=== PATIENT | male | born 1965 | race Caucasian/White ===

== ENCOUNTER 2016-06-07 01:08 | Emergency (ER) | payer OTHER ==
--- NOTE | 2016-06-07 01:46 | PN ---
Progress Note - Progress Note Note: Patient has a 1.5cm linear laceration on his bottom lip that was irrigated with normal saline. The wound was numbed with 1% lidocaine with epinepherine and sutured with 6.0 chromic gut. 5 sutures were placed and the patient tolerated the procedure well. He additionally has an abrasion to the chin and adhesive glue was applied to control bleeding.
--- NOTE | 2016-06-07 02:23 | ED ---
Shadi Dior Janilya, scribed for Vik Myers MD on 06/07/16 at 0110 . Substance Abuse/Use - HPI Summary HPI Summary: A 50 y/o male was BIBA to [facility] due to intoxication. According to the pt, he usually drinks a liter of rum on the daily basis. Similarly, today he had the same amount of alcohol at home. Later, however, pt decided to obtain some more EtOH. He went out to the liquor store. Pt states that he felt really drunk and fell down when he was walking on the street. Pt has a bleeding laceration on his chin. - History Of Current Complaint Stated Complaint: FALL Hx Obtained From: Patient Overdose Characteristics: Oral Timing Of Abuse: Daily Severity Initially: Moderate Severity Currently: Moderate Aggravating Factor(s): Nothing Alleviating Factor(s): Nothing Associated Signs And Symptoms: Negative - Allergies/Home Medications Allergies/Adverse Reactions: Allergies Allergy/AdvReac Type Severity Reaction Status Date / Time Diphenhydramine Allergy Muscle Ache Verified 03/19/16 12:58 PMH/Surg Hx/FS Hx/Imm Hx Previously Healthy: Yes Endocrine/Hematology History: Denies: Hx Diabetes, Hx Thyroid Disease Cardiovascular History: Denies: Hx Hypertension Respiratory History: Denies: Hx Asthma, Hx Chronic Obstructive Pulmonary Disease (COPD) GI History: Denies: Hx Ulcer - Surgical History Surgery Procedure, Year, and Place: minor hand surgery Infectious Disease History: Denies: Hx Clostridium Difficile, Hx Hepatitis, Hx Human Immunodeficiency Virus (HIV), Hx of Known/Suspected MRSA, Hx Shingles, Hx Tuberculosis - Family History Known Family History: Negative: Cardiac Disease, Hypertension, Diabetes - Social History Alcohol Use: None Alcohol Amount: 10-11 beers daily Substance Use Type: Reports: None Smoking Status (MU): Current Every Day Smoker Type: Cigarettes Amount Used/How Often: 1/3 ppd Review of Systems Negative: Fever Skin: Other - laceration on chin Psychological: Other - drunk All Other Systems Reviewed And Are Negative: Yes Physical Exam Triage Information Reviewed: Yes Vital Signs On Initial Exam: Initial Vitals Temp Pulse Resp BP Pulse Ox 98.0 F 90 16 163/100 97 06/07/16 01:09 06/07/16 01:09 06/07/16 01:09 06/07/16 01:09 01/30/17 01:09 Vital Signs Reviewed: Yes Appearance: Positive: No Pain Distress - aob, Thin Skin: Positive: Warm - facial lac Head/Face: Positive: Other - facial abrasions and lac Eyes: Positive: LOCO ENT: Positive: Hearing grossly normal Neck: Positive: Supple Respiratory/Lung Sounds: Positive: Clear to Auscultation, Breath Sounds Present Cardiovascular: Positive: Normal Abdomen Description: Positive: Nontender, Soft Bowel Sounds: Positive: Present Musculoskeletal: Positive: Strength/ROM Intact Neurological: Positive: Sensory/Motor Intact Diagnostics - Vital Signs Vital Signs Temp Pulse Resp BP Pulse Ox 06/07/16 01:09 98.0 F 90 16 163/100 97 - Laboratory Lab Statement: Any lab studies that have been ordered have been reviewed, and results considered in the medical decision making process. Re-Evaluation - Re-Evaluation First Eval Re-Evaluation Time: 06:24 Change: Improved Course/Dx - Diagnoses Provider Diagnoses: Alcohol intoxication, Laceration of head Discharge - Discharge Plan Condition: Improved Disposition: HOME Patient Education Materials: Alcohol Intoxication (ED), Laceration (ED) Referrals: Nahum Ayoub MD [Primary Care Provider] - Additional Instructions: Follow up with your primary care provider tomorrow. The documentation as recorded by the Shadi david Janilya accurately reflects the service I personally performed and the decisions made by , Vik Myers MD.
[2016-06-07 06:19] VITALS: BP 114/77
== END 2016-06-07 06:17 | disposition home or self-care (01) ==
LOC: ED 01:08
DX: S01.81XA Laceration without foreign body of other part of head, initial encounter (principal); W19.XXXA Unspecified fall, initial encounter; Y92.410 Unspecified street and highway as the place of occurrence of the external cause; F17.210 Nicotine dependence, cigarettes, uncomplicated; F10.129 Alcohol abuse with intoxication, unspecified
CPT/HCPCS: 99283

== ENCOUNTER 2017-06-24 13:07 | Emergency (ER) | payer OTHER ==
[2017-06-24] MEDS ORDERED: LORazepam INJ* 2 MG/ML 1 ML VIAL IM ONE (13:44)
[2017-06-24] MEDS ORDERED: Haloperidol INJ IV/IM* 5 MG/ML AMP IM ONE (13:44)
[2017-06-24] MEDS ORDERED: diPHENhydraMINE IV* 50 MG/ML 1 ml VIAL (BENADRYL) IM ONE (13:44)
[2017-06-24 14:39] LABS: ABS Basophils 0.1 10^3/ul (0-0.2); ABS Eosinophils 0 10^3/ul (0-0.6); ABS Lymphocytes 1.3 10^3/ul (1.0-4.8); ABS Monocytes 0.3 10^3/ul (0-0.8); ABS Neutrophils 4.8 10^3/ul (1.5-7.7); ABS Nucleated RBC 0 10^3/ul; Eosinophil % 0.5 % (0-6); Hematocrit 43 % (42-52); Hemoglobin 14.5 g/dl (14.0-18.0); Lymphocyte % 20.2 % (25-47); Mean Corpuscular HGB Conc 33 g/dl (31-36); Mean Corpuscular Hemoglobin 30 pg (27-31); Mean Corpuscular Volume 89 fL (80-94); Mean Platelet Volume 8 um3 (7.4-10.4); Nucleated Red Blood Cells % 0; Platelet Count 224 10^3/ul (150-450); Red Blood Count 4.85 10^6/ul (4.0-5.4); Red Cell Distribution Width 13 % (10.5-15); White Blood Count 6.5 10^3/ul (3.5-10.8)
[2017-06-24 14:57] LABS: EGFR Non-African American 134.3 (>60)
[2017-06-24 16:56] LABS: Urine Appearance Clear; Urine Blood Negative (Negative); Urine Color Yellow; Urine Ketones Trace (Negative); Urine Protein Negative (Negative); Urine Specific Gravity 1.016 (1.010-1.030); Urine Urobilinogen Negative (Negative)
--- NOTE | 2017-06-25 01:25 | ED ---
Danny Dior Tecjoon, scribed for Serjio Winchester MD on 06/25/17 at 0102 . Progress - Consult/PCP Time Called: 13:15 Course/Dx - Course Course Of Treatment: Patient was signed out from Dr. Michel at end of shift. Patient was seen by Mental Health Jet Worker, Dr. Lucas. Following evaluation, patient will be diagnosed with alcohol intoxication and depression. Patient will be discharged. - Diagnoses Provider Diagnoses: Alcohol intoxication, Depression - Provider Notifications Discussed Care Of Patient With: Hung Lucas - Psych Time Discussed With Above Provider: 01:02 - E The documentation as recorded by the Danny david Tecjoon accurately reflects the service I personally performed and the decisions made by Ranulfo cortez Abdul, MD.
[2017-06-25 01:29] VITALS: BP 116/72
--- NOTE | 2017-06-26 22:44 | ED ---
Jac Dior Jennifer scribed for Kaden Michel MD on 06/24/17 at 1344 . Psychiatric Complaint - HPI Summary HPI Summary: The patient is a 51 year old male who was brought to the ED 941 for suicidal ideation after his friend called the police today at 12:00. The patient was asking his friend to bring him a gun to hurt himself. However, the patient is being uncooperative in the ED. He reports that he is sleeping fine, eating and drinking fine, and has a home. He has been drinking today, but wont say when he began or how much he drank. LEVEL 5 CAVEAT: HPI limited due to patients refusal to cooperate. - History Of Current Complaint Chief Complaint: EDMentalHealth Time Seen by Provider: 06/24/17 13:34 Hx Obtained From: Other: - Police Character: Depressed Aggravating Factor(s): Alcohol Use Related History: Positive For: Prior Psychiatric Issues, Drug Abuse Counseling - AA Has Suicidal: Reports: Thoughts - Allergies/Home Medications Allergies/Adverse Reactions: Allergies Allergy/AdvReac Type Severity Reaction Status Date / Time MS Diphenhydramine Allergy Muscle Ache Verified 06/24/17 14:08 [Diphenhydramine] Home Medications: Home Medications NK [No Home Medications Reported] 06/24/17 [History Confirmed 06/24/17] PMH/Surg Hx/FS Hx/Imm Hx Endocrine/Hematology History: Denies: Hx Diabetes, Hx Thyroid Disease Cardiovascular History: Denies: Hx Hypertension Respiratory History: Denies: Hx Asthma, Hx Chronic Obstructive Pulmonary Disease (COPD) GI History: Denies: Hx Ulcer - Surgical History Surgery Procedure, Year, and Place: minor hand surgery Infectious Disease History: No Infectious Disease History: Denies: Hx Clostridium Difficile, Hx Hepatitis, Hx Human Immunodeficiency Virus (HIV), Hx of Known/Suspected MRSA, Hx Shingles, Hx Tuberculosis, Traveled Outside the [place] in Last 30 Days - Family History Known Family History: Negative: Cardiac Disease, Hypertension, Diabetes - Social History Alcohol Use: None Alcohol Amount: 10-11 beers daily Substance Use Type: Reports: None Smoking Status (MU): Current Every Day Smoker Type: Cigarettes Amount Used/How Often: 1/3 ppd Review of Systems Positive: Depressed All Other Systems Reviewed And Are Negative: Yes - Comments Additional Review of Systems Comments: LEVEL 5 CAVEAT: ROS limited due to patient's refusal to cooperate. Physical Exam - Summary Physical Exam Summary: General: Combative during examination, slurred speech, talking out of the corner of his mouth Cardiovascular: Skin is well perfused Pulmonary: No respiratory distress, no tachypnea Abdomen: Non-distended Skin: Warm, pink, dry Psych: Normal affect Neuro: A&Ox3 LEVEL 5 CAVEAT: Physical Exam is limited due to patient's refusal to cooperate. Triage Information Reviewed: Yes Vital Signs On Initial Exam: Initial Vitals Temp Pulse Resp BP Pulse Ox 0 F 0 0 0/0 0 06/24/17 13:17 06/24/17 13:17 06/24/17 13:17 06/24/17 13:17 06/24/17 13:17 Vital Signs Reviewed: Yes Diagnostics - Vital Signs Vital Signs Temp Pulse Resp BP Pulse Ox 06/24/17 13:17 0 F 0 0 0/0 0 - Laboratory Lab Results: Lab Results 06/24/17 06/24/17 06/24/17 Range/Units 14:30 14:30 16:47 WBC 6.5 (3.5-10.8) 10^3/ul RBC 4.85 (4.0-5.4) 10^6/ul Hgb 14.5 (14.0-18.0) g/dl Hct 43 (42-52) % MCV 89 (80-94) fL MCH 30 (27-31) pg MCHC 33 (31-36) g/dl RDW 13 (10.5-15) % Plt Count 224 (150-450) 10^3/ul MPV 8 (7.4-10.4) um3 Neut % (Auto) 74.5 (38-83) % Lymph % (Auto) 20.2 L (25-47) % [place] % (Auto) 4.0 (1-9) % Eos % (Auto) 0.5 (0-6) % Baso % (Auto) 0.8 (0-2) % Absolute Neuts (auto) 4.8 (1.5-7.7) 10^3/ul Absolute Lymphs (auto) 1.3 (1.0-4.8) 10^3/ul Absolute Monos (auto) 0.3 (0-0.8) 10^3/ul Absolute Eos (auto) 0 (0-0.6) 10^3/ul Absolute Basos (auto) 0.1 (0-0.2) 10^3/ul Absolute Nucleated RBC 0 10^3/ul Nucleated RBC % 0 Sodium 144 (133-145) mmol/L Potassium 3.5 (3.5-5.0) mmol/L Chloride 107 (101-111) mmol/L Carbon Dioxide 24 (22-32) mmol/L Anion Gap 13 H (2-11) mmol/L BUN 11 (6-24) mg/dL Creatinine 0.63 L (0.67-1.17) mg/dL Est GFR ( Amer) 172.7 (>60) Est GFR (Non-Af Amer) 134.3 (>60) BUN/Creatinine Ratio 17.5 (8-20) Glucose 98 (70-100) mg/dL Calcium 8.7 (8.6-10.3) mg/dL Total Bilirubin 1.10 H (0.2-1.0) mg/dL AST 73 H (13-39) U/L ALT 37 (7-52) U/L Alkaline Phosphatase 50 (34-104) U/L Total Protein 6.4 (6.4-8.9) g/dL Albumin 4.1 (3.2-5.2) g/dL Globulin 2.3 (2-4) g/dL Albumin/Globulin Ratio 1.8 (1-3) TSH 3.59 (0.34-5.60) mcIU/mL Urine Color Urine Appearance Urine pH (5-9) Ur Specific [place] (1.010-1.030) Urine Protein (Negative) Urine Ketones (Negative) Urine Blood (Negative) Urine Nitrate (Negative) Urine Bilirubin (Negative) Urine Urobilinogen (Negative) Ur Leukocyte Esterase (Negative) Urine Glucose (Negative) Salicylates < 2.50 (<30) mg/dL Urine Opiates Screen None detected (None Detect) Acetaminophen < 15 mcg/mL Ur Barbiturates Screen None detected (None Detect) Ur Phencyclidine Scrn None detected (None Detect) Ur Amphetamines Screen None detected (None Detect) U Benzodiazepines Scrn None detected (None Detect) Urine Cocaine Screen None detected (None Detect) U Cannabinoids Screen None detected (None Detect) Serum Alcohol 300 H (<10) mg/dL 02/16/18 Range/Units 16:47 WBC (3.5-10.8) 10^3/ul RBC (4.0-5.4) 10^6/ul Hgb (14.0-18.0) g/dl Hct (42-52) % MCV (80-94) fL MCH (27-31) pg MCHC (31-36) g/dl RDW (10.5-15) % Plt Count (150-450) 10^3/ul MPV (7.4-10.4) um3 Neut % (Auto) (38-83) % Lymph % (Auto) (25-47) % [place] % (Auto) (1-9) % Eos % (Auto) (0-6) % Baso % (Auto) (0-2) % Absolute Neuts (auto) (1.5-7.7) 10^3/ul Absolute Lymphs (auto) (1.0-4.8) 10^3/ul Absolute Monos (auto) (0-0.8) 10^3/ul Absolute Eos (auto) (0-0.6) 10^3/ul Absolute Basos (auto) (0-0.2) 10^3/ul Absolute Nucleated RBC 10^3/ul Nucleated RBC % Sodium (133-145) mmol/L Potassium (3.5-5.0) mmol/L Chloride (101-111) mmol/L Carbon Dioxide (22-32) mmol/L Anion Gap (2-11) mmol/L BUN (6-24) mg/dL Creatinine (0.67-1.17) mg/dL Est GFR ( Amer) (>60) Est GFR (Non-Af Amer) (>60) BUN/Creatinine Ratio (8-20) Glucose (70-100) mg/dL Calcium (8.6-10.3) mg/dL Total Bilirubin (0.2-1.0) mg/dL AST (13-39) U/L ALT (7-52) U/L Alkaline Phosphatase (34-104) U/L Total Protein (6.4-8.9) g/dL Albumin (3.2-5.2) g/dL Globulin (2-4) g/dL Albumin/Globulin Ratio (1-3) TSH (0.34-5.60) mcIU/mL Urine Color Yellow Urine Appearance Clear Urine pH 6.0 (5-9) Ur Specific [place] 1.016 (1.010-1.030) Urine Protein Negative (Negative) Urine Ketones Trace H (Negative) Urine Blood Negative (Negative) Urine Nitrate Negative (Negative) Urine Bilirubin Negative (Negative) Urine Urobilinogen Negative (Negative) Ur Leukocyte Esterase Negative (Negative) Urine Glucose Negative (Negative) Salicylates (<30) mg/dL Urine Opiates Screen (None Detect) Acetaminophen mcg/mL Ur Barbiturates Screen (None Detect) Ur Phencyclidine Scrn (None Detect) Ur Amphetamines Screen (None Detect) U Benzodiazepines Scrn (None Detect) Urine Cocaine Screen (None Detect) U Cannabinoids Screen (None Detect) Serum Alcohol (<10) mg/dL Result Diagrams: 06/24/17 14:30 06/24/17 14:30 Lab Statement: Any lab studies that have been ordered have been reviewed, and results considered in the medical decision making process. Course/Dx - Course Assessment/Plan: The patient is a 51 year old male who was brought to the ED 941 for suicidal ideation after his friend called the police today at 12:00. In the ED course the patient was given Benadryl, Haldol, and Ativan. Bloodwork and Urinalysis were obtained. The patient was diagnosed with alcohol intoxication and suicidal ideation. Sign out to Dr. Winchester pending psych evaluation. - Differential Dx/Clinical Impression Provider Diagnosis: Alcohol intoxication, Depression Discharge - Discharge Plan Condition: Stable Disposition: HOME Discharge Disposition Comment: Sign out to Dr. Winchester pending psych evaluation. Referrals: Nahum Ayoub MD [Primary Care Provider] - The documentation as recorded by the Jac david Jennifer accurately reflects the service I personally performed and the decisions made by , Kaden Michel MD.
== END 2017-06-25 01:31 | disposition home or self-care (01) ==
LOC: ED 13:07
DX: F10.129 Alcohol abuse with intoxication, unspecified (principal); F32.9 Major depressive disorder, single episode, unspecified; F17.210 Nicotine dependence, cigarettes, uncomplicated; Z88.8 Allergy status to other drugs, medicaments and biological substances
CPT/HCPCS: 36415; 80053; 80307; 80320; 80329; 81003; 84443; 85025; 96372; 99285; G0480; J1630; J2060

== ENCOUNTER 2017-08-01 20:05 | Emergency (ER) | payer SELFPAY ==
[2017-08-01 21:03] LABS: ABS Basophils 0 10^3/ul (0-0.2); ABS Eosinophils 0 10^3/ul (0-0.6); ABS Lymphocytes 0.6 10^3/ul (1.0-4.8); ABS Monocytes 0.4 10^3/ul (0-0.8); ABS Neutrophils 4.4 10^3/ul (1.5-7.7); ABS Nucleated RBC 0 10^3/ul; Eosinophil % 0 % (0-6); Hematocrit 38 % (42-52); Lymphocyte % 11.5 % (25-47); Mean Corpuscular HGB Conc 34 g/dl (31-36); Mean Corpuscular Hemoglobin 31 pg (27-31); Mean Corpuscular Volume 90 fL (80-94); Nucleated Red Blood Cells % 0; Platelet Count 105 10^3/ul (150-450); Red Cell Distribution Width 19 % (10.5-15); White Blood Count 5.4 10^3/ul (3.5-10.8)
[2017-08-01 21:27] LABS: EGFR Non-African American 127.2 (>60)
[2017-08-02 06:42] VITALS: BP 118/78
[2017-08-02] MEDS ORDERED: chlordiazePOXIDE CAP* 25 MG PO ONE (06:46)
--- NOTE | 2017-08-02 14:14 | ED ---
Silviano Dior Julia, scribed for Yan Russell on 08/01/17 at 2034 . Substance Abuse/Use - HPI Summary HPI Summary: This patient is a 51 year old M brought to [facility] by police (2208) because a pedestrian called because he could not walk straight. Patient states that he feels terrible and feels shaky. Patient denies CP and SOB. Pt states that he drinks daily and that he has been drinking "all his life". - History Of Current Complaint Chief Complaint: EDSubstanceAbuse Stated Complaint: 2208 Time Seen by Provider: 08/01/17 20:10 Hx Obtained From: Patient Onset/Duration of Drug/ETOH Abuse: Years Overdose Characteristics: Oral Timing Of Abuse: Daily Character: Depressed Associated Signs And Symptoms: Other: - feels terrible and "shaky" - Allergies/Home Medications Allergies/Adverse Reactions: Allergies Allergy/AdvReac Type Severity Reaction Status Date / Time diphenhydramine AdvReac Muscle Ache Verified 08/01/17 21:59 PMH/Surg Hx/FS Hx/Imm Hx Endocrine/Hematology History: Denies: Hx Diabetes, Hx Thyroid Disease Cardiovascular History: Denies: Hx Hypertension, Hx Myocardial Infarction Respiratory History: Denies: Hx Asthma, Hx Chronic Obstructive Pulmonary Disease (COPD) GI History: Denies: Hx Ulcer Neurological History: Reports: Hx Seizures Psychiatric History: Denies: Hx Eating Disorder - Surgical History Surgery Procedure, Year, and Place: minor hand surgery Infectious Disease History: No Infectious Disease History: Denies: Hx Clostridium Difficile, Hx Hepatitis, Hx Human Immunodeficiency Virus (HIV), Hx of Known/Suspected MRSA, Hx Shingles, Hx Tuberculosis, Traveled Outside the in Last 30 Days - Family History Known Family History: Negative: Cardiac Disease, Hypertension, Diabetes - Social History Alcohol Use: Daily Alcohol Amount: 10-11 beers daily Substance Use Type: Reports: None Smoking Status (MU): Current Every Day Smoker Type: Cigarettes Amount Used/How Often: 1/3 ppd Review of Systems Positive: Other - general malasie and "shaky" Positive: Depressed All Other Systems Reviewed And Are Negative: Yes Physical Exam - Summary Physical Exam Summary: Appearance: Well appearing, no pain distress Skin: warm, dry, reflects adequate perfusion Head/face: normal Eyes: EOMI, LOCO ENT: normal Neck: supple, non-tender Respiratory: CTA, breath sounds present Cardiovascular: RRR, pulses symmetrical Abdomen: non-tender, soft Bowel: present Musculoskeletal: normal, strength/ROM intact Neuro: normal, sensory motor intact, A&Ox3 Psych: Depressed affect Triage Information Reviewed: Yes Vital Signs On Initial Exam: Initial Vitals Temp Pulse Resp BP Pulse Ox 100.1 F 98 20 125/83 98 08/01/17 20:05 08/01/17 20:05 08/01/17 20:05 08/01/17 20:05 08/01/17 20:05 Vital Signs Reviewed: Yes Diagnostics - Vital Signs Vital Signs Temp Pulse Resp BP Pulse Ox 08/01/17 20:05 100.1 F 98 20 125/83 98 - Laboratory Result Diagrams: 08/01/17 20:53 08/01/17 20:53 Lab Statement: Any lab studies that have been ordered have been reviewed, and results considered in the medical decision making process. Course/Dx - Course Course Of Treatment: Patient is brought to the ED for etoh intoxication. Patient has depressed afffect and reports drinking daily. Patient has no complaints while in ED. Bloodwork is unermarkable, besided a serum alcohol of 421. Patient is signed out to Dr. Hernandez at shift change. - Diagnoses Provider Diagnoses: Alcohol intoxication Discharge - Sign-Out/Discharge Documenting (check all that apply): Sign-Out Patient Signing out patient TO: Silvestre Hernandez - etoh metabolism - Discharge Plan Referrals: Nahum Ayoub MD [Primary Care Provider] - The documentation as recorded by the Silviano david Julia accurately reflects the service I personally performed and the decisions made by , Yan Russell.
== END 2017-08-02 07:11 | disposition home or self-care (01) ==
LOC: ED 20:05
DX: F10.129 Alcohol abuse with intoxication, unspecified (principal); Y90.8 Blood alcohol level of 240 mg/100 ml or more; R56.9 Unspecified convulsions; R53.81 Other malaise; R25.1 Tremor, unspecified; F32.9 Major depressive disorder, single episode, unspecified; Z88.8 Allergy status to other drugs, medicaments and biological substances; F17.210 Nicotine dependence, cigarettes, uncomplicated
CPT/HCPCS: 36415; 80053; 80320; 80329; 84443; 84484; 85025; 93005; 99284; A9270-GY; G0480